=== PATIENT | female | born 2000 | race Caucasian/White ===

== ENCOUNTER 2018-11-29 20:02 | Emergency (ER) | payer OTHER, SELFPAY ==
[2018-11-29 20:22] VITALS: BP 110/70; PULSE 74; RESP 18; TEMP 37.2; O2SAT 100; BMI 23.1
--- NOTE | 2018-11-29 20:26 | DI.RAD.S_ITS ---
PROCEDURE: XR ANKLE RT MIN 3V INDICATIONS: R ankle pain TECHNIQUE: 3 views of the ankle were acquired. COMPARISON: None. FINDINGS: Bones: No fractures or dislocations. Ankle mortise is normally aligned. No suspicious bony lesions. Soft tissues: No tibiotalar joint effusion. IMPRESSION: No right ankle fracture or dislocation identified. Consider followup radiographs in 7-10 days if there is continued clinical concern. Dictated by: Marquis Bradford M.D. on 11/29/2018 at 21:13 Approved by: Marquis Bradford M.D. on 11/29/2018 at 21:15
--- NOTE | 2018-11-29 20:28 | DI.RAD.S_ITS ---
PROCEDURE: XR FOOT RT MIN 3V INDICATIONS: R foot/ankle TECHNIQUE: 3 views of the foot were acquired. COMPARISON: None. FINDINGS: Bones: There is a small 4 mm linear osseous fragment laterally adjacent to the cuboid bone. There is osseous fusion of the right fourth and fifth distal interphalangeal joints. Soft tissues: No tibiotalar joint effusion. IMPRESSION: Small 4 mm linear osseous fragment laterally adjacent to the right cuboid bone favored to represent an unfused accessory ossification center, but an avulsion fracture could appear similar. Correlation with point tenderness recommended. Consider followup radiographs in 7-10 days if there is continued clinical concern. Dictated by: Marquis Bradford M.D. on 11/29/2018 at 21:15 Approved by: Marquis Bradford M.D. on 11/29/2018 at 21:20
--- NOTE | 2018-11-29 20:36 | ED.LOWEXIN ---
HPI - Extremity Injury (Lower) <ESTEFANÍA Becerra - Last Filed: 11/29/18 22:03> General Chief Complaint: Extremity Injury, Lower Stated Complaint: thinks she broke her right foot Time Seen by Provider: 11/29/18 20:36 Source: patient Mode of arrival: ambulatory Limitations: no limitations History of Present Illness HPI Narrative: 18-year-old healthy female that is a nonsmoker here for complaint of pain to her right foot and right ankle. She states she was hiking earlier today when she rolled her right ankle causing pain. She reports increased pain with ambulation. Pain is to the ankle area and to the medial aspect of the right foot. She denies any direct trauma to the foot. She denies any other injuries or concerns at this timeframe. MD complaint: ankle injury Related Data Home Medications Medication Instructions Recorded Confirmed ibuprofen 11/29/18 levonorgestrel-ethinyl estrad 11/29/18 [Levora-28] sertraline 11/29/18 Review of Systems <ESTEFANÍA Becerra - Last Filed: 11/29/18 22:03> Constitutional Denies chills, Denies fever(s), Denies lethargy and Denies weakness Eyes Denies change in vision, Denies eye discharge, Denies irritation and Denies loss of vision ENT Ears, Nose, Mouth, and Throat: Denies change in voice, Denies neck pain and Denies sore throat Cardiovascular Denies chest pain, Denies irregular heart rhythm, Denies lightheadedness, Denies palpitations, Denies dyspnea, Denies dyspnea on exertion and Denies orthopnea Respiratory Denies cough, Denies dyspnea, Denies dyspnea on exertion and Denies wheezing Gastrointestinal Gastrointestinal: Denies abdominal pain, Denies change in bowel habits, Denies diarrhea, Denies nausea and Denies vomiting Genitourinary Denies hematuria, Denies flank pain, Denies urinary incontinence and Denies urinary urgency Musculoskeletal Denies neck pain Comments: Right ankle and foot pain Integumentary/Breasts Denies pruritus, Denies erythema, Denies rash and Denies wounds Neurologic Denies confusion, Denies loss of vision and Denies weakness Psychiatric Denies anxiety, Denies confusion, Denies depression, Denies homicidal ideation and Denies suicidal ideation Endocrine Denies palpitations Allergic/Immunologic Denies wheezing Exam <ESTEFANÍA Becerra - Last Filed: 11/29/18 22:03> Initial Vital Signs Initial Vital Signs: Vital Signs Temperature 98.9 F 11/29/18 20:22 Pulse Rate 74 11/29/18 20:22 Respiratory Rate 18 11/29/18 20:22 Blood Pressure 110/70 11/29/18 20:22 Pulse Oximetry 100 11/29/18 20:22 Const General: cooperative and well developed Nutritional Appearance: well nourished Orientation: alert, awake, oriented x3 and not confused HENVT Mouth: oral mucosae normal and moist mucous membranes Eyes Conjunctivae: conjunctivae normal Sclera: sclerae normal Pupils: PERRL EOM: EOM intact bilaterally Resp Effort & Inspection: normal respiratory effort, able to speak in complete sentences, no respiratory distress and no use of accessory muscles Auscultation: clear to auscultation bilaterally, no rales, no rhonchi and no wheezes Cardio Rate: regular rate Rhythm: regular rhythm Heart Sounds: no click, no gallops, no murmurs and no rubs Pulses: normal peripheral pulses Skin General: no rashes or lesions noted, No jaundice and No petechiae Neuro General: alert, oriented x3, gait normal and no focal motor deficits Speech: speech normal Extrem Other: Right foot with no signs of trauma. No ecchymosis. No swelling. No open lesions. Distal sensation is intact. Distal range of motion is intact. Distal pulses are intact. Tenderness on palpation to the ankle area and to the medial aspect of the right foot. <Tong Goodman DO - Last Filed: 11/30/18 05:38> Initial Vital Signs Initial Vital Signs: Vital Signs Temperature 98.9 F 11/29/18 20:22 Pulse Rate 74 11/29/18 20:22 Respiratory Rate 18 11/29/18 20:22 Blood Pressure 110/70 11/29/18 20:22 Pulse Oximetry 100 11/29/18 20:22 Course <ESTEFANÍA Becerra - Last Filed: 11/29/18 22:03> Orders Ordered: Discontinued Medications Ibuprofen (Advil) 400 mg PO NOW ONE Stop: 11/29/18 21:55 Vital Signs - 8 hr 11/29/18 21:54 Pulse Rate [Right Dorsalis Pedis] 70 <Tong Goodman DO - Last Filed: 11/30/18 05:38> Orders Ordered: Discontinued Medications Ibuprofen (Advil) 400 mg PO NOW ONE Stop: 11/29/18 21:55 Vital Signs - 8 hr 11/29/18 21:54 Pulse Rate [Right Dorsalis Pedis] 70 MDM - Extremity Injury (Lower) <ESTEFANÍA Becerra - Last Filed: 11/29/18 22:03> Imaging Data Right foot : Radiologist's impression: [address] [address] XRay Report Signed Patient: Tona Garcia MR#: [id number] : 2000 Acct:[id number] Age/Sex: 18 / F Date of Service: 11/29/18 Loc: ED Accession Number: [id number] Procedure: XR foot RT min 3V Ordering Provider: Tong Goodman D.O. PROCEDURE: XR FOOT RT MIN 3V INDICATIONS: R foot/ankle TECHNIQUE: 3 views of the foot were acquired. COMPARISON: None. FINDINGS: Bones: There is a small 4 mm linear osseous fragment laterally adjacent to the cuboid bone. There is osseous fusion of the right fourth and fifth distal interphalangeal joints. Soft tissues: No tibiotalar joint effusion. IMPRESSION: Small 4 mm linear osseous fragment laterally adjacent to the right cuboid bone favored to represent an unfused accessory ossification center, but an avulsion fracture could appear similar. Correlation with point tenderness recommended. Consider followup radiographs in 7-10 days if there is continued clinical concern. Dictated by: Marquis Bradford M.D. on 11/29/2018 at 21:15 Approved by: Marquis Bradford M.D. on 11/29/2018 at 21:20 Right ankle : Radiologist's impression: [address] [address] XRay Report Signed Patient: Tona Garcia MR#: [id number] : 2000 Acct:[id number] Age/Sex: 18 / F Date of Service: 11/29/18 Loc: ED Accession Number: [id number] Procedure: XR ankle RT min 3V Ordering Provider: Tong Goodman D.O. PROCEDURE: XR ANKLE RT MIN 3V INDICATIONS: R ankle pain TECHNIQUE: 3 views of the ankle were acquired. COMPARISON: None. FINDINGS: Bones: No fractures or dislocations. Ankle mortise is normally aligned. No suspicious bony lesions. Soft tissues: No tibiotalar joint effusion. IMPRESSION: No right ankle fracture or dislocation identified. Consider followup radiographs in 7-10 days if there is continued clinical concern. Dictated by: Marquis Bradford M.D. on 11/29/2018 at 21:13 Approved by: Marquis Bradford M.D. on 11/29/2018 at 21:[address] [facility] Narrative Medical decision making narrative: X-ray of the right foot was obtained and shows a small 4 mm osseous fragment lateral to the cuboid bone which is felt to be more of a diffuse accessory ossification center vice a acute fracture. No other acute findings are seen. X-ray of the right ankle was obtained was also negative for any acute findings. Signs and symptoms presents as a sprain to the right ankle. She is placed in a gel splint for comfort and support along with crutches for nonweightbearing. [id number]-[id number] ibuprofen as needed for discomfort. Ice and elevation help with swelling. Follow up with primary care provider this week. For any worsening symptoms return to the emergency room. Discharge Plan Departure Patient Disposition: Home Clinical Impression: Right ankle sprain Discharge Date/Time: 11/29/18 22:26 Interventions: ED Discharge Assessment Last Done: 11/29/18 22:26 Instructions: Ankle Sprain Activity Restrictions/Additional Instructions: X-rays of right foot and right ankle are negative for any signs of acute fracture. Signs and symptoms presents as a sprain to the right ankle. She is placed in a gel splint for comfort and support along with crutches for nonweightbearing. [id number]-pqybukk ibuprofen as needed for discomfort. Ice and elevation help with swelling. Follow up with primary care provider this week. For any worsening symptoms return to the emergency room. Prescriptions: No Action sertraline 50 mg tablet RF: 0 levonorgestrel-ethinyl estrad [Levora-28] 0.15-0.03 mg tablet RF: 0 ibuprofen 800 mg Tablet RF: 0 Referrals: [facility] [Provider Group] <Tong Goodman DO - Last Filed: 11/30/18 05:38> Cosign ED Attending Jose Attestation: I was immediately available in the department for consultation. Documentation has been reviewed. I agree with assessment and plan.
[2018-11-29 21:54] VITALS: PULSE 70
--- NOTE | 2018-11-29 21:54 | ED_ITS ---
HPI - Extremity Injury (Lower) <ESTEFANÍA Becerra - Last Filed: 11/29/18 22:03> General Chief Complaint: Extremity Injury, Lower Stated Complaint: thinks she broke her right foot Time Seen by Provider: 11/29/18 20:36 Source: patient Mode of arrival: ambulatory Limitations: no limitations History of Present Illness HPI Narrative: 18-year-old healthy female that is a nonsmoker here for complaint of pain to her right foot and right ankle. She states she was hiking earlier today when she rolled her right ankle causing pain. She reports increased pain with ambulation. Pain is to the ankle area and to the medial aspect of the right foot. She denies any direct trauma to the foot. She denies any other injuries or concerns at this timeframe. MD complaint: ankle injury Related Data Home Medications Medication Instructions Recorded Confirmed ibuprofen 11/29/18 levonorgestrel-ethinyl estrad 11/29/18 [Levora-28] sertraline 11/29/18 Review of Systems <ESTEFANÍA Becerra - Last Filed: 11/29/18 22:03> Constitutional Denies chills, Denies fever(s), Denies lethargy and Denies weakness Eyes Denies change in vision, Denies eye discharge, Denies irritation and Denies loss of vision ENT Ears, Nose, Mouth, and Throat: Denies change in voice, Denies neck pain and Denies sore throat Cardiovascular Denies chest pain, Denies irregular heart rhythm, Denies lightheadedness, Denies palpitations, Denies dyspnea, Denies dyspnea on exertion and Denies orthopnea Respiratory Denies cough, Denies dyspnea, Denies dyspnea on exertion and Denies wheezing Gastrointestinal Gastrointestinal: Denies abdominal pain, Denies change in bowel habits, Denies diarrhea, Denies nausea and Denies vomiting Genitourinary Denies hematuria, Denies flank pain, Denies urinary incontinence and Denies urinary urgency Musculoskeletal Denies neck pain Comments: Right ankle and foot pain Integumentary/Breasts Denies pruritus, Denies erythema, Denies rash and Denies wounds Neurologic Denies confusion, Denies loss of vision and Denies weakness Psychiatric Denies anxiety, Denies confusion, Denies depression, Denies homicidal ideation and Denies suicidal ideation Endocrine Denies palpitations Allergic/Immunologic Denies wheezing Exam <ESTEFANÍA Becerra - Last Filed: 11/29/18 22:03> Initial Vital Signs Initial Vital Signs: Vital Signs Temperature 98.9 F 11/29/18 20:22 Pulse Rate 74 11/29/18 20:22 Respiratory Rate 18 11/29/18 20:22 Blood Pressure 110/70 11/29/18 20:22 Pulse Oximetry 100 11/29/18 20:22 Const General: cooperative and well developed Nutritional Appearance: well nourished Orientation: alert, awake, oriented x3 and not confused HENCO Mouth: oral mucosae normal and moist mucous membranes Eyes Conjunctivae: conjunctivae normal Sclera: sclerae normal Pupils: PERRL EOM: EOM intact bilaterally Resp Effort & Inspection: normal respiratory effort, able to speak in complete sentences, no respiratory distress and no use of accessory muscles Auscultation: clear to auscultation bilaterally, no rales, no rhonchi and no wheezes Cardio Rate: regular rate Rhythm: regular rhythm Heart Sounds: no click, no gallops, no murmurs and no rubs Pulses: normal peripheral pulses Skin General: no rashes or lesions noted, No jaundice and No petechiae Neuro General: alert, oriented x3, gait normal and no focal motor deficits Speech: speech normal Extrem Other: Right foot with no signs of trauma. No ecchymosis. No swelling. No open lesions. Distal sensation is intact. Distal range of motion is intact. Distal pulses are intact. Tenderness on palpation to the ankle area and to the medial aspect of the right foot. <Tong Goodman DO - Last Filed: 11/30/18 05:38> Initial Vital Signs Initial Vital Signs: Vital Signs Temperature 98.9 F 11/29/18 20:22 Pulse Rate 74 11/29/18 20:22 Respiratory Rate 18 11/29/18 20:22 Blood Pressure 110/70 11/29/18 20:22 Pulse Oximetry 100 11/29/18 20:22 Course <ESTEFANÍA Becerra - Last Filed: 11/29/18 22:03> Orders Ordered: Discontinued Medications Ibuprofen (Advil) 400 mg PO NOW ONE Stop: 11/29/18 21:55 Vital Signs - 8 hr 11/29/18 21:54 Pulse Rate [Right Dorsalis Pedis] 70 <Tong Goodman DO - Last Filed: 11/30/18 05:38> Orders Ordered: Discontinued Medications Ibuprofen (Advil) 400 mg PO NOW ONE Stop: 11/29/18 21:55 Vital Signs - 8 hr 11/29/18 21:54 Pulse Rate [Right Dorsalis Pedis] 70 MDM - Extremity Injury (Lower) <ESTEFANÍA Becerra - Last Filed: 11/29/18 22:03> Imaging Data Right foot : Radiologist's impression: [address] [address] XRay Report Signed Patient: Tona Garcia MR#: [id number] : 2000 Acct:[id number] Age/Sex: 18 / F Date of Service: 11/29/18 Loc: ED Accession Number: [id number] Procedure: XR foot RT min 3V Ordering Provider: Tong Goodman D.O. PROCEDURE: XR FOOT RT MIN 3V INDICATIONS: R foot/ankle TECHNIQUE: 3 views of the foot were acquired. COMPARISON: None. FINDINGS: Bones: There is a small 4 mm linear osseous fragment laterally adjacent to the cuboid bone. There is osseous fusion of the right fourth and fifth distal interphalangeal joints. Soft tissues: No tibiotalar joint effusion. IMPRESSION: Small 4 mm linear osseous fragment laterally adjacent to the right cuboid bone favored to represent an unfused accessory ossification center, but an avulsion fracture could appear similar. Correlation with point tenderness recommended. Consider followup radiographs in 7-10 days if there is continued clinical concern. Dictated by: Marquis Bradford M.D. on 11/29/2018 at 21:15 Approved by: Marquis Bradford M.D. on 11/29/2018 at 21:20 Right ankle : Radiologist's impression: [address] [address] XRay Report Signed Patient: Tona Garcia MR#: [id number] : 2000 Acct:[id number] Age/Sex: 18 / F Date of Service: 11/29/18 Loc: ED Accession Number: [id number] Procedure: XR ankle RT min 3V Ordering Provider: Tong Goodman D.O. PROCEDURE: XR ANKLE RT MIN 3V INDICATIONS: R ankle pain TECHNIQUE: 3 views of the ankle were acquired. COMPARISON: None. FINDINGS: Bones: No fractures or dislocations. Ankle mortise is normally aligned. No suspicious bony lesions. Soft tissues: No tibiotalar joint effusion. IMPRESSION: No right ankle fracture or dislocation identified. Consider followup radiographs in 7-10 days if there is continued clinical concern. Dictated by: Marquis Bradford M.D. on 11/29/2018 at 21:13 Approved by: Marquis Bradford M.D. on 11/29/2018 at 21:15 [facility] Narrative Medical decision making narrative: X-ray of the right foot was obtained and shows a small 4 mm osseous fragment lateral to the cuboid bone which is felt to be more of a diffuse accessory ossification center vice a acute fracture. No other acute findings are seen. X-ray of the right ankle was obtained was also negative for any acute findings. Signs and symptoms presents as a sprain to the right ankle. She is placed in a gel splint for comfort and support along with crutches for nonweightbearing. Ezje-ssk-lmtlwse ibuprofen as needed for discomfort. Ice and elevation help with swelling. Follow up with primary care provider this week. For any worsening symptoms return to the emergency room. Discharge Plan Departure Patient Disposition: Home Clinical Impression: Right ankle sprain Discharge Date/Time: 11/29/18 22:26 Interventions: ED Discharge Assessment Last Done: 11/29/18 22:26 Instructions: Ankle Sprain Activity Restrictions/Additional Instructions: X-rays of right foot and right ankle are negative for any signs of acute fracture. Signs and symptoms presents as a sprain to the right ankle. She is placed in a gel splint for comfort and support along with crutches for nonweightbearing. Ykov-oxs-tzpzqny ibuprofen as needed for discomfort. Ice and elevation help with swelling. Follow up with primary care provider this week. For any worsening symptoms return to the emergency room. Prescriptions: No Action sertraline 50 mg tablet RF: 0 levonorgestrel-ethinyl estrad [Levora-28] 0.15-0.03 mg tablet RF: 0 ibuprofen 800 mg Tablet RF: 0 Referrals: [facility] [Provider Group] <Tong Goodman DO - Last Filed: 11/30/18 05:38> Cosign ED Attending Jose Attestation: I was immediately available in the department for consultation. Documentation has been reviewed. I agree with assessment and plan.
--- NOTE | 2018-11-29 22:24 | PC.NURSE ---
distal cms intact, further eval deferred to [employer] [place]
== END 2018-11-29 22:26 | disposition home or self-care (01) ==
PROVIDERS: Emergency Provider Nurse Practitioner Family
DX: S93.401A Sprain of unspecified ligament of right ankle, initial encounter (principal); W18.43XA Slipping, tripping and stumbling without falling due to stepping from one level to another, initial encounter
CPT/HCPCS: 29540; 73610; 73630; 99283